=== PATIENT | male | born 1965 | race Caucasian/White ===

== ENCOUNTER → 2023-08-11 06:35 | Day surgery (SDC) | payer BC, SELFPAY | LOC: GI 06:35 | PROVIDERS: ATTENDING PHYSICIAN Internal Medicine Gastroenterology | DX: Z12.11 Encounter for screening for malignant neoplasm of colon (principal); Z86.010 Personal history of colon polyps; Z80.0 Family history of malignant neoplasm of digestive organs; K63.5 Polyp of colon; R12 Heartburn; K31.7 Polyp of stomach and duodenum; K31.89 Other diseases of stomach and duodenum; K26.9 Duodenal ulcer, unspecified as acute or chronic, without hemorrhage or perforation; K20.80 Other esophagitis without bleeding; Z87.19 Personal history of other diseases of the digestive system; Z09 Encounter for follow-up examination after completed treatment for conditions other than malignant neoplasm | CPT/HCPCS: 45385; 43239; 88305; 88342 ==

== ENCOUNTER 2024-08-12 10:32 | Emergency (ER) | payer BC, SELFPAY ==
[2024-08-12 10:37] VITALS: BP 147/94
--- NOTE | 2024-08-12 11:50 | ED.GENMED ---
History of Present Illness
General
Chief Complaint: Musculo-Skeletal Complaint
Source: patient
Exam Limitations: none
Time Seen by Provider: 08/12/24 11:27
Nursing documentation reviewed up to this point in time: agreed with
History of Present Illness
History of Present Illness:
PT IS A 58 Y/O M with h/o HTN ,HLD, kidneys tones
here with R kneepain and swelling
[place] and int he morning flexed his hip and externally rotated hip, flexed knee to put his sock on (like frog leg) and felt pop in R knee which was signifiantly painful and he was unable to walk for a few minutes
after that he was able to walk
went to [facility] and got a cane and a soft knee brace
flew home and woke up and now it is swollen more above the knee
painful in the medial area
no calf pain/swelling/redness
no redness to the skin of theknee
able to bend with mild pain
most pain is weight bearing
nothing taken for pain
Past History
Past History
ED Past Medical History: None
Social History
Personal:
Review of Systems
Review of Systems
Allergies reviewed?: Yes
All Other Systems: Not applicable
Phy Exam
Physical Exam
Physical Exam:
GENERAL: Alert , in no apparent distress, comfortable at rest
HEAD: NCAT
CV: 2+ DP PULSES B/L
NEUROLOGICAL: Alert and oriented, no focal neuro deficits, , 5/5 strength, sensation intact, ambulation slight limp right leg
SKIN: Warm and dry, normal color
no redness
no calf swelling or redness;
MUSCULOSKELETAL:mild to mod suprapatellar effusion
able to flex to 45 degrees
joint stable
neg ant/post drawer
medial tendenrss atneriorly
symmetric laxity with varus and valgus stress, no significant translation
patella seems normal
able to straight leg raise
PSYCH: Normal and appropriate interaction.
Course
Orders/Labs/Results
Orders:
Orders
08/12/24 10:34
CR Knee- Right 4 Or More View* Urgent
Comment:
Reason For Exam: pain, swelling, 'felt a pop'
Vital Signs
Initial and Last Documented VS:
Initial Vital Signs
Temp Pulse BP Pulse Ox
36.7 C 63 147/94 98
08/12/24 10:37 08/12/24 10:37 08/12/24 10:37 08/12/24 10:37
Last Documented Vital Signs
Temp Pulse Resp BP Pulse Ox
36.7 C 59 16 132/82 100
08/12/24 10:37 08/12/24 12:39 08/12/24 12:39 08/12/24 12:39 08/12/24 12:39
MDM/Problems Addressed
Differential Diagnosis Includes:
OA, meniscus tear, cartilage injury, MCL injury
MDM/Problems Addressed:
58 y/o M
h/o HTN, HLD
here with R knee pain and swellin after feeling pop in the knee while putting sock on yesterday
painful weight bearin gand flexion
feels better using cane and wearing brace
no weakness/numbness/skin changes
no h/o knee problems
nothing taken for pain
full ROM
mild effusino
no skin chnages
calf normal
nv intact
no laxity
able to ambulate with limp
xray indep reviwed, no signficant findings
? meniscus injury
knee immob, cane, tylenol, ortho
*Critical Care Note
Total Time (30-74mins, 75-104mins- exclusive of procedures): Not Applicable
ED Attending Note
-
Portions of this chart may have been created with voice recognition software.� Occasional wrong word or��sound alike� substitutions may have occurred due to the inherent limitations of voice recognition software.
Discharge Plan
Departure
Patient Disposition: Home (Routine Discharge)
Date of Disposition: 08/12/24
Time of Disposition: 12:51
Patient with high blood pressure during this ER visit?: No
Condition: Fair
Covid-19: Not Applicable
Discharge Problem:
Effusion of knee joint right
Instructions: Knee Immobilizer (DC), Knee Sprain (DC)
Prescriptions:
No Action
ondansetron 4 MG tablet,disintegrating
4 mg PO TIDPRN PRN (Reason: NAUSEA) Qty: 6 0RF
Referrals:
Piyush Oneal MD [Family Provider] -
Albert Gaxiola MD [Active] - Follow up in 2-3 days
Activity Restrictions/Additional Instructions:
YOUR XRAY APPEARED NORMAL OTHER THAN FLUID IN YOUR JOINT
YOU SHOULD REST, ICE, ELEVATE AND WEAR THE BRACE WHILE UP ON YOUR FEET
USE THE CANE TO HELP YOU WALK
CALL WEDNESDAY [facility]O APPT WITH ORTHOPEDICS
TYLENOL FOR PAIN
RETURN FOR SEVERE PAIN, SEVERE SWELLING, FEVER OR ANY CONCERNS.
Interventions
Interventions:
*Risk Screen - Suicide Last Done: 08/12/24 11:51
*General Assessment Last Done: 08/12/24 10:42
*Neglect/Abuse Screening Last Done: 08/12/24 11:51
ED- Fall Risk Assessment Last Done: 08/12/24 10:42
*ED COVID-19 Vaccine History Last Done: 08/12/24 10:42
*Nursing Disposition Last Done: 08/12/24 13:07
ED-Musculoskeletal Assessment Last Done: 08/12/24 11:32
Discharge Date and Time
Discharge Date/Time: 08/12/24 13:08
Print Language: YORUBA
[2024-08-12 12:39] VITALS: BP 132/82
== END 2024-08-12 13:08 | disposition home or self-care (01) ==
LOC: EMR 10:32
PROVIDERS: EMERGENCY PHYSICIAN Emergency Medicine; FAMILY PHYSICIAN Internal Medicine
DX: M25.461 Effusion, right knee (principal); E78.5 Hyperlipidemia, unspecified; I10 Essential (primary) hypertension; Z87.442 Personal history of urinary calculi
CPT/HCPCS: 99283; 73564